=== PATIENT | female | born 1960 | race Caucasian/White ===

== ENCOUNTER 2018-12-22 07:56 | Inpatient (IN) ==
--- NOTE | 2018-12-22 08:27 | PROVIDER DOCUMENTATION ---
HPI-Respiratory General - General Chief Complaint: Flu Symptoms Stated Complaint: POSS.PNEUMONIA Time Seen by Provider: 12/22/18 08:12 Source: patient Allergies/Adverse Reactions: Patient Allergies Allergy/AdvReac Type Severity Reaction Status Date / Time azithromycin [From Zithromax] Allergy RASH Verified 09/02/18 16:48 Sulfa (Sulfonamide Allergy RASH Verified 09/02/18 16:48 Antibiotics) Home Medications: Home Medication List Medication Instructions Recorded Confirmed Last Taken Type Albuterol Sulfate Inhaler 2 puff INH Q6H PRN PRN #1 inhaler 09/02/18 Unknown Rx [Ventolin Hfa] Levofloxacin [Levaquin] 750 mg PO DAILY 5 Days #5 tab 09/02/18 Unknown Rx - History of Present Illness-Resp Nature of Presenting Problem: 58yof present to ER with c/o cough, bodyaches x 8-10 days. Reports fever. Reports productive cough with green/yellow sputum. Also c/o n/v. Denies diarrhea. Pt c/o abd swelling. Onset/Duration: reports: other (8-10 days) Cough Quality/Degree: reports: productive cough Associated Symptoms: reports: cough, fever/chills, flu-like symptoms, nasal congestion, short of breath Review of Systems - Adult - REVIEW OF SYSTEMS - ADULT Constitutional: reports: see HPI, fever Eyes: reports: no symptoms reported Ears, Nose, Mouth & Throat: reports: see HPI, sinus problem. denies: ear pain Cardiovascular: reports: no symptoms reported. denies: chest pain Respiratory: reports: see HPI, cough, shortness of breath Gastrointestinal: reports: see HPI, nausea, vomiting. denies: abdominal pain, diarrhea Genitourinary: reports: no symptoms reported. denies: dysuria, frequency, hematuria, urgency Musculoskeletal: reports: no symptoms reported Integumentary: reports: no symptoms reported Neurological: reports: no symptoms reported Psychiatric: reports: no symptoms reported Endocrine: reports: no symptoms reported Hematologic/Lymphatic: reports: no symptoms reported Allergic/Immunologic: reports: no symptoms reported All Other Systems: Reviewed and Negative Past History - Adult - PAST MEDICAL HISTORY-ADULT Review of Records: reports: Old Records Reviewed, Nursing Assessment Review, Medications Reviewed Cardiovascular: reports: HTN Respiratory: reports: COPD Musculoskeletal: reports: chronic pain, intervertebral disc disease Endocrine/Immune: reports: thyroid disorder - PRIOR SURGERIES/PROCEDURES Surgical/Procedure History: reports: orthopedic (extremity) - IMMUNIZATION STATUS Childhood Immunizations: See Nurse Assessment Flu Vaccine: See Nurse Assessment - FAMILY HISTORY Family History: reviewed, not pertinent Physical Exam-General - PHYSICAL EXAM-ADULT Initial Vital Signs Reviewed: Yes - CONSTITUTIONAL General Appearance: alert, no apparent distress - EYES Eyes: PERRL/EOMI, pink conjunctivae - HEAD, EARS, NOSE, MOUTH & THROAT HENMT: moist mucous membranes, normal ENT inspection, TMs normal, pharynx normal . negative: pharyngeal erythema, tonsillar exudate, frontal tenderness, maxillary tenderness - NECK Neck: full range of motion, supple, normal inspection - RESPIRATORY Respiratory: chest non-tender, no pleuratic chest pain, no respiratory distress, no accessory muscle use, decreased breath sounds (bilaterally). negative: crackles, rales, rhonchi, stridor, wheezing - CARDIOVASCULAR Cardiovascular: regular rate, rhythm - GASTROINTESTINAL (ABDOMEN) Abdominal Exam: normal bowel sounds, non tender, soft. negative: distended, guarding, rigid, rebound - LYMPHATIC Lymphatic: no adenopathy - MUSCULOSKELETAL Back Exam: normal inspection, no CVA tenderness, no vertebral tenderness Extremity: normal range of motion, normal gait, normal inspection - SKIN Integumentary: normal color, warm/dry - PSYCHIATRIC Psych/Mental Status: oriented x 3 Progress - PLAN OF CARE/RESULTS Progress/Plan/Lab Results: Vital Signs - 8 hr 12/22/18 08:02 Temperature 98.2 F Pulse Rate 96 H Respiratory Rate 22 Blood Pressure 151/92 O2 Sat by Pulse Oximetry 94 L Laboratory Results - last 24 hr 12/22/18 12/22/18 12/22/18 08:10 09:00 09:00 WBC RBC Hgb Hct MCV MCH MCHC RDW Std Deviation Plt Count MPV Neut % (Auto) Lymph % (Auto) [place] % (Auto) Eos % (Auto) Baso % (Auto) Neut # (Auto) Lymph # (Auto) [place] # (Auto) Eos # (Auto) Baso # (Auto) Sodium Potassium Chloride Carbon Dioxide Anion Gap BUN Creatinine Estimated GFR/1.73 m2 BUN/Creatinine Ratio Glucose Calculated Osmolality Calcium Total Bilirubin AST ALT Alkaline Phosphatase Total Protein Albumin Globulin Albumin/Globulin Ratio Lipase 143 H Plasma Lactate 0.9 Urine Source Urine Color Urine Clarity Urine pH Ur Specific [place] Urine Protein Urine Ketones Urine Blood Urine Nitrite Urine Bilirubin Urine Urobilinogen Urine Microscopic RBC Urine WBC Urine Microscopic WBC Ur Epithelial Cells Urine Bacteria Urine Glucose Influenza A (Rapid) NEGATIVE Influenza B (Rapid) NEGATIVE 12/22/18 12/22/18 12/22/18 09:00 09:00 09:00 WBC 23.69 H RBC 4.50 Hgb 13.0 Hct 38.4 MCV 85.3 MCH 28.9 MCHC 33.9 RDW Std Deviation 14.0 Plt Count 509 H MPV 9.8 Neut % (Auto) Not Reportable Lymph % (Auto) 12.5 L [place] % (Auto) 4.6 Eos % (Auto) 1.4 Baso % (Auto) Not Reportable Neut # (Auto) Not Reportable Lymph # (Auto) 2.95 [place] # (Auto) 1.08 H Eos # (Auto) 0.33 Baso # (Auto) Not Reportable Sodium 130 L Potassium 3.1 L Chloride 88 L Carbon Dioxide 31 Anion Gap 12 BUN 10 Creatinine 0.4 L Estimated GFR/1.73 m2 > 60 BUN/Creatinine Ratio 25 Glucose 138 H Calculated Osmolality 262 Calcium 8.6 L Total Bilirubin 0.30 AST 21 ALT 30 Alkaline Phosphatase 122 H Total Protein 6.5 Albumin 2.9 L Globulin 4.0 Albumin/Globulin Ratio 1.0 Lipase Plasma Lactate Urine Source CLEAN CATCH Urine Color YELLOW Urine Clarity CLEAR Urine pH 8.0 Ur Specific [place] 1.005 Urine Protein TRACE A Urine Ketones NEGATIVE Urine Blood NEGATIVE Urine Nitrite NEGATIVE Urine Bilirubin NEGATIVE Urine Urobilinogen 4 Urine Microscopic RBC Not Reportable Urine WBC TRACE A Urine Microscopic WBC <10 Ur Epithelial Cells >10 A Urine Bacteria 1+ Urine Glucose NEGATIVE Influenza A (Rapid) Influenza B (Rapid) Orders Category Date Time Status Nursing [[facility]. NRSG Communication Order] DIRECTED Care 12/22/18 09:30 Active CHEST-2 VIEWS [RAD] Stat Exams 12/22/18 08:13 Completed flat [ABDOMEN FLAT/UPRIGHT] [RAD] Stat Exams 12/22/18 09:49 Ordered BLOOD CULTURE [BLDCUL] Stat Lab 12/22/18 08:31 Ordered CBC WITH DIFF [HEME] Stat Lab 12/22/18 09:00 Results COMPREHENSIVE METABOLIC PANEL [CHEM] Stat Lab 12/22/18 09:00 Completed Flu [INFLUENZA SCREEN PL] Stat Lab 12/22/18 08:10 Completed LACTATE, PLASMA [CHEM] Stat Lab 12/22/18 09:00 Completed LIPASE [CHEM] Stat Lab 12/22/18 09:[address] W/POSS RFLX CULT [URINALYSIS] Stat Lab 12/22/18 09:00 Completed URINE CULTURE [RM] Routine Lab 12/22/18 09:39 Ordered CefTRIAXONE [Rocephin] 1 gm Med 12/22/18 08:32 Discontinued 0.9% Sodium Chloride Inj [Ns] 50 ml IV NOW Levofloxacin 750 mg/D5w [Levaquin 750 mg/D5w] Med 12/22/18 09:00 Active 750 mg in 150 ml IV Q24H Result Diagrams: 12/22/18 09:00 12/22/18 09:00 - REASSESSMENT Reassessment #1 Time Reassessed: 09:31 (pt resting. Pt updated on status and plan for admission pending labs) Reassessment #2 Time Reassessed: 09:50 (Pt resting. Made aware of admission status.) - XRAY 1 XRAY Study: Chest Impression: See EMR Report (Heart size is normal. There is infiltrate at left upper lobe which is consistent with pneumonia. There are patchy infiltrates at the mid and lower right lung. There is no substantial pleural effusion or pneumothorax identified. IMPRESSION: Bilateral infiltrates, most extensive at the left upper lobe, consistent with pneumonia. Electronically signed by Jimmy Tran 12/22/2018 8:27 AM) - CONSULTS/PCP/HOSPITALIST Notification #1 *Consult/PCP/Hospitalist*: Dr Caruso, hospitalist Time Discussed: 09:49 (admit for PNA, discussed elevated lipase, Dr Caruso requests order for abd flat/upright.) Consult Disposition: Admit Departure - Departure Date of Disposition Decision: 12/22/18 Time of Disposition Decision: 09:50 DIAGNOSIS: Pneumonia Qualifiers: Pneumonia type: due to unspecified organism Laterality: bilateral Lung location: unspecified part of lung Qualified Code(s): J18.9 - Pneumonia, unspecified organism Disposition: ADMITTED INPATIENT 09 Certified Medical Emergency: Emergent Condition: Fair Referrals and Follow-Ups: None,PCP [Primary Care Provider] - - Critical Care Note This patient required my direct & personal management of CC.: No Attestation - Physician/ ABHISHEK Attestation Patient care was provided by Advanced Practice Provider:: Yes Advanced Practice Provider:: January Guzman Advanced Practice Provider documentation review:: The Mid-level provider documentation, treatment plan and medical decision making was reviewed by the physician who agrees with all treatment and medical decision making by the MLP. The physician spent face to face time with patient:: No Advanced Practice Provider documentation review:: Supervising physician onsite and consulted in the evaluation and care of this patient. The physician did not have a face to face encounter with the patient.
--- NOTE | 2018-12-22 08:29 | Diag Imaging Result Doc PS360 ---
EXAM: CHEST-2 VIEWS - 12/22/2018 HISTORY: cough TECHNIQUE: Chest two views COMPARISON: 09/02/2018 FINDINGS: Heart size is normal. There is infiltrate at left upper lobe which is consistent with pneumonia. There are patchy infiltrates at the mid and lower right lung. There is no substantial pleural effusion or pneumothorax identified. IMPRESSION: Bilateral infiltrates, most extensive at the left upper lobe, consistent with pneumonia. Electronically signed by Jimmy Tran 12/22/2018 8:27 AM
[2018-12-22] MEDS ORDERED: ROCEPHIN 1 GM in NS 50 ML IV ONE (08:32)
[2018-12-22 09:34] LABS: EOS# 0.33 X1000 (0.0-0.7); EOS% 1.4 % (0.0-10.0); HEMATOCRIT 38.4 % (37.0-47.0); LYMPH# 2.95 X1000 (1.2-3.4); LYMPH% 12.5 % (20.5-51.1); MCH 28.9 PG (27-31); MCHC 33.9 g/dL (33-37); MCV 85.3 FL (81-99); MONO# 1.08 X1000 (0.11-0.59); MONO% 4.6 % (1.7-9.3); MPV 9.8 FL (7.4-10.4); PLT 509 X1000 (130-400); WBC 23.69 X1000 (4.8-10.8)
[2018-12-22 09:35] LABS: INFLUENZA A NEGATIVE (NEGATIVE); INFLUENZA B NEGATIVE (NEGATIVE)
[2018-12-22 09:37] LABS: AGAP 12; ALBUMIN 2.9 g/dL (3.5-5.0); ALKALINE PHOSPHATASE 122 U/L (32-104); BUN 10 mg/dL (8-22); CALCIUM 8.6 mg/dL (8.8-10.2); CHLORIDE 88 mmol/L (98-107); COSMO 262; CREATININE 0.4 mg/dL (0.5-0.9); ESTIMATED GFR > 60; GLUCOSE 138 mg/dL (70-104); GOT 21 U/L (10-30); GPT 30 U/L (10-36); POTASSIUM 3.1 mmol/L (3.5-5.1); SODIUM 130 mmol/L (136-145); TCO2 31 mmol/L (25-35); TOTAL PROTEIN 6.5 g/dL (6.3-8.3)
[2018-12-22 09:38] LABS: BILIRUBIN URINE NEGATIVE (NEGATIVE); BLOOD URINE NEGATIVE (NEGATIVE); CLARITY CLEAR (CLEAR); COLOR YELLOW; GLUCOSE URINE NEGATIVE (NEGATIVE); KETONE URINE NEGATIVE (NEGATIVE); LEUKOCYTES URINE TRACE (NEGATIVE); NITRITE URINE NEGATIVE (NEGATIVE); PROTEIN URINE TRACE mg/dL (NEGATIVE); SP GRAVITY URINE 1.005; UROBILINOGEN URINE 4 mg/dL
[2018-12-22 09:39] LABS: URINE BACTERIA 1+ /HFP; URINE EPITHELIAL CELLS >10 /HPF (<10); URINE SOURCE CLEAN CATCH; URINE WBC <10 /HPF (<10)
[2018-12-22 09:50] LABS: ANISOCYTOSIS 1+; BANDS 1 % (0-1); LYMPHS 12 % (21-51); MONO 4 % (1-9); SEGS 83 % (42-75)
--- NOTE | 2018-12-22 10:20 | Diag Imaging Result Doc PS360 ---
EXAM: ABDOMEN FLAT/UPRIGHT - 12/22/2018 HISTORY: elevated lipase, "abd swelling" TECHNIQUE: Supine and upright abdomen COMPARISON: None. FINDINGS: There is mild gaseous distention of colon to to approximately the splenic flexure. There is possibly some mild gaseous small bowel distention at the right lower quadrant. There is no free air identified. There are thoracolumbar levoscoliosis and spondylosis noted. IMPRESSION: Nonspecific mild gaseous bowel distention, possibly related to mild ileus. Electronically signed by Jimmy Tran 12/22/2018 10:18 AM
[2018-12-22] MEDS: LEVAQUIN 750 MG/D5W 750 MG/150 ML IVPB IV SCH (10:45)
[2018-12-22] MEDS ORDERED: TORADOL IV ONE (10:57)
[2018-12-22] MEDS ORDERED: DUONEB (A & A) INH PRN (11:28)
[2018-12-22] MEDS ORDERED: NS 1,000 ML IV ONE (11:28)
[2018-12-22] MEDS ORDERED: TYLENOL PO PRN (11:28)
--- NOTE | 2018-12-22 12:18 | HISTORY AND PHYSICAL ---
PRIMARY CARE PHYSICIAN: None. CHIEF COMPLAINT: Cough of green sputum, body aches, and some abdominal swelling. HISTORY OF PRESENTING ILLNESS: This is a 58-year-old female, who presents to [facility] ER with complaints of body aches and a cough of green to yellow sputum, has had some associated nausea and vomiting, and also complained of some abdominal swelling. Workup in the emergency room showed a white blood cell count of 23.69. Sodium was 130, potassium 3.1. Lipase was elevated mildly at 143. Urinalysis was negative. Influenza A and B were both negative. We did do a chest x-ray that showed bilateral infiltrates most extensive at the left upper lobe consistent with pneumonia. We also did an abdomen flat and upright that showed a nonspecific mild gaseous bowel distention, possibly related to a mild ileus, so she is being admitted for further evaluation and treatment. PAST MEDICAL HISTORY: Hypertension, COPD, chronic pain, and hypothyroidism. PAST SURGICAL HISTORY: None. FAMILY HISTORY: Her dad had congestive heart failure. Her mom had COPD. SOCIAL HISTORY: She currently lives with roommates. Smokes 3 cigarettes a day but has been a smoker since she was 11 years old. Denies any alcohol or illicit drug use. ALLERGIES: Azithromycin and sulfa. HOME MEDICATIONS: We will have to verify any home medications and then restart as appropriate. I will place an order for Nursing to update and confirm home medications. REVIEW OF SYSTEMS: Positive for body aches, chills, productive cough of green sputum, some mild shortness of breath. Complained of some abdominal swelling with some nausea/vomiting. Denied any constipation, diarrhea, burning, or hurting with urination. PHYSICAL EXAMINATION: VITAL SIGNS: On arrival showed a temperature of 98.2 degrees, pulse 96, respirations 22, blood pressure 151/92, saturating 94% on room air. GENERAL: This is a 58-year-old female, who is lying in the bed and answers questions appropriately. HEMNT: Normocephalic, atraumatic. Normal ENT inspection. Oropharynx and nares are clear. NECK: Normal inspection. Normal range of motion. LUNGS: With decreased breath sounds bilaterally. Equal lung expansion. Chest wall movement noted. HEART: Regular rate and rhythm. No murmurs, rubs, or gallops. ABDOMEN: Soft, nontender, nondistended. Bowel sounds are present x4 quadrants. MUSCULOSKELETAL: She had 5/5 strength x4 extremities. NEUROLOGICAL: The cranial nerves 2 through 12 appear grossly intact. DIAGNOSTIC STUDIES: White blood cell count of 23.69, hemoglobin 13, hematocrit 38.4, platelets 509,000. Sodium 130, potassium 3.1, chloride 88, CO2 of 31, BUN of 10, creatinine 0.4, glucose 138, lipase 143. Plasma lactate of 0.9. Urinalysis was negative except for 1+ bacteria. Influenza A and B were both negative. Chest x-ray showed bilateral infiltrates most extensive at the left upper lobe consistent with pneumonia. We did do an abdomen x-ray that showed a nonspecific mild gaseous bowel distention, possibly related to a mild ileus. ASSESSMENT: 1. Bilateral pneumonia. 2. Possible mild ileus. 3. Leukocytosis, secondary to #1. 4. Hyponatremia. 5. Hypokalemia. PLAN: She is being admitted to the medical unit at [facility], placed on telemetry, O2 per protocol, healthy heart diet. Blood cultures and urine culture are pending. She will receive Levaquin 750 mg IV q. 24 h., normal saline at 125 mL an hour, Zofran 4 mg IV q.4 h. P.r.n. I am going to hold her NPO at this time until she is seen by attending. Recheck CBC, BMP in the a.m. Nursing to update and confirm any home medications and we will review and restart as appropriate. She has DuoNeb q.6 h. and q.2 h. p.r.n. Dictated by ALTAF Zimmerman for Renato Caruso MD cc: ALTAF Zimmerman MD
[2018-12-22] MEDS: ZOFRAN IV PRN (13:12)
[2018-12-22] MEDS: DUONEB (A & A) INH SCH ×3 (14:43→22:38)
[2018-12-22] MEDS ORDERED: NICODERM PATCH TD PRN (19:10)
--- NOTE | 2018-12-22 19:30 | HISTORY AND PHYSICAL ---
ADDENDUM: This is an H and P addendum. The patient is doing well. She came in for shortness of breath and cough, but she feels much better since treatment. Workup in the ER revealed shortness of breath and cough. Her white count was 23,000. Potassium was low. She was admitted for further treatment. She was placed on Levaquin. There was question of ileus, but she usually does not have any issues with her bowels. If anything, she has worsening; she usually has issues with bowel hyperfunction. It was felt that she had COPD exacerbation and possibly an early pneumonia, and she was admitted for treatment. We will empirically place her on antibiotics and follow closely. This is a [id number] encounter note with ALTAF Zimmerman. cc: Renato Caruso MD
[2018-12-22 21:42] LABS: AGAP 13; ALKALINE PHOSPHATASE 125 U/L (32-104); BUN 10 mg/dL (8-22); CALCIUM 8.7 mg/dL (8.8-10.2); CHLORIDE 91 mmol/L (98-107); CK PROFILE 23 U/L (24-173); COSMO 265; CREATININE 0.4 mg/dL (0.5-0.9); ESTIMATED GFR > 60; GLUCOSE 128 mg/dL (70-104); GOT 24 U/L (10-30); GPT 31 U/L (10-36); POTASSIUM 3.1 mmol/L (3.5-5.1); SODIUM 132 mmol/L (136-145); TCO2 27 mmol/L (25-35); TOTAL PROTEIN 7.1 g/dL (6.3-8.3)
[2018-12-22 21:44] LABS: INR 0.98; PROTIME 13.5 Seconds (11.0-16.0)
[2018-12-22] MEDS: TORADOL IV PRN (21:44)
[2018-12-22 21:45] LABS: PTT 31.3 Seconds (22.3-41.8)
[2018-12-23] MEDS: DUONEB (A & A) INH SCH ×4 (03:37→22:54)
[2018-12-23] MEDS: TORADOL IV PRN ×4 (04:32→22:40)
[2018-12-23] MEDS: LOVENOX SUBQ SCH (06:12)
[2018-12-23] MEDS: PRILOSEC PO SCH (06:12)
[2018-12-23 08:01] LABS: BASO# 0.17 X1000 (0.0-0.2); BASO% 0.8 % (0.0-0.8); EOS# 0.28 X1000 (0.0-0.7); EOS% 1.3 % (0.0-10.0); HEMATOCRIT 35.1 % (37.0-47.0); HEMOGLOBIN 11.7 g/dL (12.0-16.0); IMM GRAN# 3.07 X1000 (0.0-0.04); IMM GRAN% 14.5 % (0.0-0.5); LYMPH# 2.25 X1000 (1.2-3.4); LYMPH% 10.6 % (20.5-51.1); MCH 28.8 PG (27-31); MCHC 33.3 g/dL (33-37); MCV 86.5 FL (81-99); MONO# 0.96 X1000 (0.11-0.59); MONO% 4.5 % (1.7-9.3); MPV 10.3 FL (7.4-10.4); NEUT# 14.47 X1000 (1.4-6.5); NEUT% 68.3 % (42.2-75.2); PLT 505 X1000 (130-400); RBC 4.06 XMIL (4.2-5.4); RDW 14.2 % (11.5-14.5)
[2018-12-23 08:13] LABS: AGAP 14; BUN 9 mg/dL (8-22); CALCIUM 8.1 mg/dL (8.8-10.2); CHLORIDE 93 mmol/L (98-107); COSMO 266; CREATININE 0.4 mg/dL (0.5-0.9); ESTIMATED GFR > 60; GLUCOSE 112 mg/dL (70-104); POTASSIUM 3.5 mmol/L (3.5-5.1); SODIUM 133 mmol/L (136-145); TCO2 26 mmol/L (25-35)
[2018-12-23] MEDS: LEVAQUIN 750 MG/D5W 750 MG/150 ML IVPB IV SCH (08:33)
[2018-12-23 08:57] LABS: EOS 1 % (1-10); LYMPHS 10 % (21-51); MONO 5 % (1-9); SEGS 84 % (42-75)
[2018-12-23] MEDS: NS 1,000 ML IV SCH (09:37)
--- NOTE | 2018-12-23 09:44 | PROGRESS NOTE ---
DATE: 12/23/2018 SUBJECTIVE: Patient denies having any acute complaints and feels good this morning. OBJECTIVE: Vital Signs: Temperature 97.8 degrees, pulse 89 per minute, respiratory rate 20 per minute, blood pressure 148/85, pulse ox 97% on room air. General: Patient is alert and oriented x3. She does not appear to be in any acute distress. Cardiovascular System: First and second heart sounds are audible without any murmurs or gallops. Respiratory System: Bilateral lung air entry is good without any rales or rhonchi. Gastrointestinal: Abdomen is soft and nontender. Normal bowel sounds are present. DIAGNOSTIC DATA: CBC shows WBC count of 21.20 with 68.3% neutrophils and 10.6% lymphocytes. In comparison her white blood cell count was 23.69 yesterday. Chemistry shows sodium levels of 133 and potassium levels of 3.5. In comparison, her sodium levels were 132 and potassium levels 3.1 yesterday. Chest x-ray done yesterday showed bilateral infiltrates, most extensively at the left upper lobe. IMPRESSION: 1. Pneumonia with leukocytosis. 2. Hypokalemia that has improved. PLAN: The patient will be continued with IV levofloxacin along with bronchodilators via nebulization. She will also continue to get IV fluids and we are going to repeat labs in the morning tomorrow. Clinically she has improved and she probably can be discharged home in the next 1 to 2 days once her leukocytosis gets better. cc: MD Renato Méndez MD
[2018-12-24] MEDS: NS 1,000 ML IV SCH ×2 (00:37→16:59)
[2018-12-24] MEDS: DUONEB (A & A) INH SCH ×2 (03:21→12:56)
[2018-12-24] MEDS: TORADOL IV PRN ×3 (03:56→16:53)
[2018-12-24] MEDS: LOVENOX SUBQ SCH (05:17)
[2018-12-24] MEDS: PRILOSEC PO SCH ×2 (05:17→06:22)
[2018-12-24 06:23] LABS: BASO# 0.09 X1000 (0.0-0.2); BASO% 0.5 % (0.0-0.8); EOS% 2.4 % (0.0-10.0); HEMATOCRIT 35.8 % (37.0-47.0); HEMOGLOBIN 12.1 g/dL (12.0-16.0); IMM GRAN# 1.85 X1000 (0.0-0.04); IMM GRAN% 10.9 % (0.0-0.5); LYMPH# 2.82 X1000 (1.2-3.4); LYMPH% 16.6 % (20.5-51.1); MCH 28.7 PG (27-31); MCHC 33.8 g/dL (33-37); MONO% 4.7 % (1.7-9.3); MPV 9.9 FL (7.4-10.4); NEUT# 10.98 X1000 (1.4-6.5); NEUT% 64.9 % (42.2-75.2); PLT 574 X1000 (130-400); RBC 4.21 XMIL (4.2-5.4); WBC 16.94 X1000 (4.8-10.8)
[2018-12-24 06:43] LABS: AGAP 14; BUN 4 mg/dL (8-22); CALCIUM 8.7 mg/dL (8.8-10.2); CHLORIDE 96 mmol/L (98-107); COSMO 270; CREATININE 0.4 mg/dL (0.5-0.9); ESTIMATED GFR > 60; GLUCOSE 122 mg/dL (70-104); POTASSIUM 3.3 mmol/L (3.5-5.1); SODIUM 136 mmol/L (136-145); TCO2 25 mmol/L (25-35)
[2018-12-24 07:00] LABS: BANDS 4 % (0-1); EOS 5 % (1-10); LYMPHS 20 % (21-51); MONO 5 % (1-9); SEGS 64 % (42-75)
[2018-12-24] MEDS ORDERED: KLOR-CON PO ONE (08:27)
[2018-12-24] MEDS: LEVAQUIN 750 MG/D5W 750 MG/150 ML IVPB IV SCH (08:48)
[2018-12-24] MEDS ORDERED: AMBIEN PO PRN (10:36)
[2018-12-24] MEDS: DUONEB (A & A) INH PRN ×2 (10:56→16:00)
--- NOTE | 2018-12-24 11:55 | PROGRESS NOTE ---
DATE: 12/24/2018 SUBJECTIVE: The patient denies having any acute complaints except for insomnia. She also states that she wants her albuterol and Atrovent nebulization treatment dosages to be reduced since she is having some tremors, but she does not have any wheezing anymore. OBJECTIVE: Vital Signs: Temperature 98.6 degrees, pulse 114 per minute, respiratory rate 20 per minute, blood pressure 158/80, pulse oximetry 96% on room air. General: Patient is alert and oriented x3. She does not appear to be in any acute distress. Cardiovascular System: First and second heart sounds are audible with regular tachycardia present. Respiratory System: Bilateral lung air entry is moderately decreased but there are no rales or rhonchi present on auscultation. Gastrointestinal: Abdomen is soft and nondistended. Normal bowel sounds are present. LABORATORY DATA: CBC shows WBC count of 16.94. Rest of the CBC is nondiagnostic. In comparison, her WBC count was 21.20 yesterday. Chemistry shows potassium levels of 3.3. Rest of the BMP is nondiagnostic. IMPRESSION: 1. Left upper lobe pneumonia. 2. Leukocytosis secondary to pneumonia. 3. Hypokalemia. 4. Insomnia. PLAN: The patient will be kept on levofloxacin intravenously along with IV fluids and I am going to give her a single dose of potassium chloride 40 mEq orally to improve her hypokalemia. We are going to change her albuterol and Atrovent nebulization treatments to every 6 hours as needed. I am also going to give her zolpidem 5 mg at bedtime as needed for insomnia and keep her on enoxaparin 40 mg subcutaneously every day for venous thromboembolism prophylaxis. I am going to repeat her labs and chest x-ray tomorrow morning. She can probably be able to go home tomorrow if chest x-ray shows improvement and her leukocytosis resolves. cc: MD Renato Méndez MD
[2018-12-25] MEDS: NS 1,000 ML IV SCH ×2 (02:57→22:26)
[2018-12-25] MEDS: PRILOSEC PO SCH ×2 (05:47→06:22)
[2018-12-25] MEDS: LOVENOX SUBQ SCH (05:47)
[2018-12-25] MEDS ORDERED: IMODIUM PO ONE (06:15)
[2018-12-25 06:49] LABS: BASO# 0.07 X1000 (0.0-0.2); BASO% 0.5 % (0.0-0.8); EOS# 0.31 X1000 (0.0-0.7); EOS% 2.3 % (0.0-10.0); HEMATOCRIT 39.8 % (37.0-47.0); HEMOGLOBIN 13.1 g/dL (12.0-16.0); IMM GRAN# 1.15 X1000 (0.0-0.04); IMM GRAN% 8.4 % (0.0-0.5); LYMPH# 3.04 X1000 (1.2-3.4); LYMPH% 22.2 % (20.5-51.1); MCH 28.5 PG (27-31); MCHC 32.9 g/dL (33-37); MCV 86.5 FL (81-99); MONO% 4.4 % (1.7-9.3); MPV 9.8 FL (7.4-10.4); NEUT# 8.54 X1000 (1.4-6.5); NEUT% 62.2 % (42.2-75.2); PLT 660 X1000 (130-400); RDW 14.3 % (11.5-14.5); WBC 13.71 X1000 (4.8-10.8)
[2018-12-25 07:09] LABS: BANDS 2 % (0-1); EOS 1 % (1-10); LYMPHS 36 % (21-51); MONO 5 % (1-9); SEGS 56 % (42-75)
[2018-12-25 07:14] LABS: AGAP 14; BUN 6 mg/dL (8-22); CHLORIDE 95 mmol/L (98-107); COSMO 265; CREATININE 0.4 mg/dL (0.5-0.9); ESTIMATED GFR > 60; GLUCOSE 123 mg/dL (70-104); POTASSIUM 4.4 mmol/L (3.5-5.1); SODIUM 133 mmol/L (136-145); TCO2 24 mmol/L (25-35)
--- NOTE | 2018-12-25 07:57 | Diag Imaging Result Doc PS360 ---
CHEST-PORTABLE - 12/25/2018 INDICATION: Pneumonia COMPARISON: 12/22/2018 FINDINGS: There is increased density of the focal infiltrate in the left upper lobe. No new infiltrates. The airspace opacities in the right lung base have decreased. IMPRESSION: Mixed changes from prior. Persistent left upper lobe infiltrate/pneumonia. Electronically signed by Mani Iqbal 12/25/2018 7:54 AM
[2018-12-25] MEDS: DUONEB (A & A) INH PRN (08:40)
[2018-12-25] MEDS ORDERED: AMBIEN PO PRN (08:50)
[2018-12-25] MEDS ORDERED: ATIVAN IV ONE (09:38)
[2018-12-25] MEDS: NORVASC PO SCH (10:00)
[2018-12-25] MEDS: LEVAQUIN 750 MG/D5W 750 MG/150 ML IVPB IV SCH (10:00)
--- NOTE | 2018-12-25 10:14 | PROGRESS NOTE ---
DATE: 12/25/2018 SUBJECTIVE: The patient denies having any acute complaints this morning, and feels well, although she does have some insomnia, for which she requests to increase the dose of her Ambien. OBJECTIVE: Vital Signs: Temperature 98.8 degrees, pulse 107 per minute, respiratory rate 20 per minute, blood pressure 177/95, pulse ox 97% on room air. General: The patient is alert and oriented x3. She does not appear to be in any acute distress. Cardiovascular: First and second heart sounds are audible without any murmurs or gallops. Respiratory: No respiratory distress noted. Bilateral lung air entry is good without any rales or rhonchi. Gastrointestinal: Abdomen is benign. DIAGNOSTIC DATA: Chest x-ray done this morning showed persistent left upper lobe infiltrate. CBC shows WBC count of 13.71, that has improved from 16.94 yesterday. Basic metabolic panel shows slight hyponatremia with sodium level of 133. Rest of the BMP is nondiagnostic. IMPRESSION: 1. Left upper lobe pneumonia. 2. Hypertension. 3. Borderline hyponatremia. 4. Gastroesophageal reflux disease. PLAN: The patient will be continued on IV levofloxacin since she is responding well clinically. Her blood pressure has been elevated, and therefore, I am going to initiate her on amlodipine 5 mg orally once daily. She has hyponatremia, but that does not warrant any treatment at this time. She has gastroesophageal reflux disease, for which she will continue with omeprazole, and I am going to increase the dose of zolpidem to 10 mg daily at bedtime as needed for insomnia. Further recommendations will be given as per hospital course. cc: MD Renato Méndez MD
[2018-12-25] MEDS: ZOFRAN IV PRN (13:32)
[2018-12-26 03:10] VITALS: BP 130/64
[2018-12-26] MEDS: DUONEB (A & A) INH PRN (05:21)
[2018-12-26] MEDS: NS 1,000 ML IV SCH (05:55)
[2018-12-26] MEDS: PRILOSEC PO SCH (06:04)
[2018-12-26] MEDS: LOVENOX SUBQ SCH (06:05)
[2018-12-26] MEDS ORDERED: ZOFRAN ODT PO ONE (06:14)
[2018-12-26 06:56] LABS: BASO# 0.08 X1000 (0.0-0.2); BASO% 0.6 % (0.0-0.8); EOS# 0.23 X1000 (0.0-0.7); EOS% 1.8 % (0.0-10.0); HEMOGLOBIN 12.7 g/dL (12.0-16.0); IMM GRAN# 0.82 X1000 (0.0-0.04); IMM GRAN% 6.5 % (0.0-0.5); MCH 28.7 PG (27-31); MCHC 32.6 g/dL (33-37); MONO# 0.72 X1000 (0.11-0.59); MONO% 5.7 % (1.7-9.3); MPV 9.8 FL (7.4-10.4); NEUT# 7.56 X1000 (1.4-6.5); NEUT% 59.4 % (42.2-75.2); PLT 685 X1000 (130-400); RBC 4.43 XMIL (4.2-5.4); RDW 14.7 % (11.5-14.5); WBC 12.71 X1000 (4.8-10.8)
[2018-12-26 06:57] LABS: AGAP 13; ALBUMIN 3.3 g/dL (3.5-5.0); ALKALINE PHOSPHATASE 93 U/L (32-104); BUN 9 mg/dL (8-22); CALCIUM 8.9 mg/dL (8.8-10.2); CHLORIDE 100 mmol/L (98-107); COSMO 272; CREATININE 0.4 mg/dL (0.5-0.9); ESTIMATED GFR > 60; GLUCOSE 118 mg/dL (70-104); GOT 29 U/L (10-30); GPT 29 U/L (10-36); SODIUM 136 mmol/L (136-145); TCO2 23 mmol/L (25-35)
[2018-12-26] MEDS: NORVASC PO SCH (08:39)
[2018-12-26] MEDS ORDERED: LEVAQUIN PO SCH (09:00)
[2018-12-26 10:08] LABS: ANISOCYTOSIS 1+; LYMPHS 25 % (21-51); MONO 6 % (1-9); SEGS 69 % (42-75)
--- NOTE | 2018-12-26 20:52 | DISCHARGE SUMMARY ---
ADMISSION DATE: 12/22/2018 DISCHARGE DATE: 12/26/2018 DISCHARGE DIAGNOSES: 1. Left upper lobe pneumonia. 2. Hypertension. 3. Borderline hyponatremia. 4. Chronic hypoxic respiratory failure. 5. Gastroesophageal reflux disease. 6. Mild leukocytosis. 7. Chronic tobacco abuse. CONSULTATIONS: None. PROCEDURES: Number. BRIEF HOSPITAL COURSE: Patient is a 58-year-old female who presented to the hospital, treated in the usual fashion, placed on antibiotics, oxygen, and breathing treatments, and given a nicotine patch. She thankfully had an uneventful hospital course. Currently, she is awake and alert. She is able to ambulate without any difficulty and is asking to go home. DISPOSITION: Patient will be discharged home. She will continue Levaquin for the next 5 days for a total 7 day course for her pneumonia. She will continue amlodipine 5 mg daily for her blood pressure. Discussed with her the importance of stopping smoking. We will continue nicotine patch. She will follow up outpatient with primary care of her choice. Greater 30 minutes was spent in total care. cc: Geraldo Banks MD
--- NOTE | 2018-12-26 22:01 | DISCHARGE SUMMARY ---
ADMISSION DATE: 12/22/2018 DISCHARGE DATE: 12/26/2018 DIAGNOSES: 1. Left upper lobe pneumonia. 2. Hypertension. 3. Hypokalemia, resolved. 4. Leukocytosis secondary to pneumonia, resolved. 5. Insomnia. DIAGNOSTICS: 1. 12/22/2018 chest x-ray revealed bilateral infiltrates most extensive at the left upper lobe consistent with pneumonia. 2. Abdominal x-ray revealed nonspecific mild gaseous bowel distention possibly related to mild ileus. 3. Repeat chest x-ray revealed mild changes with persistent left upper lobe infiltrate. 4. Microbiology. Blood cultures x2 revealed no growth after 48 hours. 5. Urine culture revealed no growth. 6. Sputum culture revealed normal elvin. HOSPITAL COURSE: Ms Morales presented to the emergency room complaining of productive green sputum with body aches and abdominal swelling. She was found to have pneumonia. All cultures were negative. She initially received antibiotic coverage of Levaquin IV and she has been transitioned over to Levaquin p.o. for discharge. Her abdominal x-ray revealed possible ileus. She has had 4 formed bowel movements since admission. She has no further abdominal distention. No nausea, no abdominal pain. We did trend her electrolytes and repleted these as is appropriate. DISCHARGE PHYSICAL EXAM: Vital signs: Blood pressure is 130/64 with a heart rate of 94, respirations 16, temperature is 98 degrees oral with room air saturations 97-100%. Cardiovascular: Regular rate and rhythm. S1 and S2 are appreciated. Pulmonary: Breath sounds are clear with no increased work of breathing noted. Chest rises and falls symmetric with respiration Gastrointestinal: Abdomen soft, nontender, nondistended with bowel sounds in all 4 quadrants. Neurologic: She is alert, oriented x3. DISCHARGE MEDICATIONS: Norvasc 5 mg p.o. daily, Levaquin 750 mg p.o. daily for 4 days. FOLLOWUP: She is to follow up with her primary care physician in the next 1 to 2 weeks. She has been instructed to call to be seen sooner or return to the ER for temperature greater than 101, any shortness of breath, any chest pain, palpitations, syncope, dizziness, any nausea, vomiting, diarrhea, constipation, black or bloody vomitus or stools or for any questions or concerns that she may have. She is being discharged home in stable condition with family members. TIME SPENT: Greater than 30 minutes. Dictated by ALTAF Sorto for Geraldo Banks MD This chart was documented by, ALTAF Sorto and accurately reflects the services performed, treatment plan and medical decisions as attested by the providers signature Geraldo Banks MD. cc: ALTAF Sorto MD
== END 2018-12-26 11:20 | disposition home or self-care (01) | DRG 194 ==
LOC: P.ED 07:56 → P.MEDSURG 10:24 → SUATTDRO 10:24
PROVIDERS: ATTEND Family Medicine
CPT/HCPCS: 71010; 71020; 71045; 71046; 74019; 74020; 80048; 80053; 81001; 82550; 83605; 83690; 83735; 84484; 85025; 85610; 85730; 87040; 87070; 87088; 87205; 87275; 87276; 87804; 94640; 94761; 96365; 96367; 99284; A9270; J0696; J1650; J1885; J1956; J2060; J2405; J7030